=== PATIENT | male | born 1970 | race Hispanic/Latino ===

== ENCOUNTER 2018-11-20 20:09 | Inpatient (IN) | payer SELFPAY ==
[~2018-11-20 20:09] MED LIST: ISOVUE-370 76%-LOCM 1 ML ONE
[2018-11-20 20:35] LABS: #Eosinphils 0.1 thou/uL (0.0-0.7); #Lymphocytes 1.5 thou/uL (1.20-3.40); #Monocytes 0.5 thou/uL (0.11-0.59); #Neutrophils 7.4 thou/uL (1.40-6.50); %Basophils 0.5 % (0.0-1.0); %Eosinophils 0.9 % (0.0-10.0); %Lymphocytes 16.1 % (21.0-51.0); %Monocytes 4.8 % (0.0-10.0); %Neutrophils 77.8 % (42.0-75.0); Hemoglobin 17.1 g/dL (14.0-18.0); Mean Corpuscular HGB CONC 34.9 g/dL (32.0-36.0); Mean Corpuscular Hemoglobin 31.5 pg (27.0-31.0); Mean Corpuscular Volume 90.2 fL (78.0-98.0); Mean Platelet Volume 7.9 fL (7.4-10.4); Platelet Count 202 thou/uL (130-400); Red Blood Cell (RBC) Count 5.43 mill/uL (4.70-6.10); White Blood Cell (WBC) Count 9.5 thou/uL (4.8-10.8)
[2018-11-20 20:59] LABS: Bilirubin Negative (Negative); Blood, Urine Moderate (Negative); Clarity CLEAR (Clear); Glucose, Urine (Dipstick) Negative (Negative); Leukocyte Negative (Negative); Nitrite Negative (Negative); Protein, Urine (Dipstick) Negative (Neg-Trace); Specific Gravity, Urine 1.015 (1.002-1.036); pH, Urine 7.5 (5.0-9.0)
[2018-11-20 21:00] LABS: Bacteria/HPF None Seen HPF (None Seen); Hyaline Casts/LPF 0-3 HYALINE CAST LPF (0-3 Hyaline); Pathc Cast-AUWi Flag 0.14 (0-2.49); Squamous Epithelial 0-3 HPF (0-3); WBC/HPF None Seen HPF (0-3)
[2018-11-20 21:05] LABS: ALT (SGPT) 53 U/L (8-55); AST (SGOT) 35 U/L (5-34); Albumin 4.7 g/dL (3.5-5.0); Alkaline Phosphatase 87 U/L (40-150); Anion Gap 14 mmol/L (10-20); BUN (Urea Nitrogen) 8 mg/dL (8.9-20.6); Calc. Creatinine Clearance 0 mL/min (70-130); Calcium 9.6 mg/dL (7.8-10.44); Carbon Dioxide 23 mmol/L (22-29); Chloride 104 mmol/L (98-107); Estimated GFR-MDRD 86; Globulin 3.4 g/dL (2.4-3.5); Glucose 107 mg/dL (70-105); Potassium 4.1 mmol/L (3.5-5.1); Protein, Total 8.1 g/dL (6.0-8.3); Sodium 137 mmol/L (136-145)
--- NOTE | 2018-11-20 23:36 | CT ---
CT ABDOMEN WITH CONTRAST CT PELVIS WITH CONTRAST: DATE: 11/20/2018 TIME: 11:10 p.m. HISTORY: A 48-year-old male with periumbilical abdominal pain, nausea, and emesis. COMPARISON: None available. TECHNIQUE: IV injection of iodinated contrast media: Isovue. Oral contrast media: Not administered. FINDINGS: The appendix is fluid-filled and dilated to a caliber of 14 mm. At the tip of the appendix, there is a 10 mm appendicolith. Several centimeters proximal to that, there is a tiny, 0.2 cm appendicolith. Hepatic attenuation is diffusely low, suggestive of a fatty liver. There are a few accessory splen ules. Otherwise, the spleen, bilateral kidneys, abdominal aorta, adrenals, and pancreas are normal. No colonic diverticulitis. No small bowel dilatation. Normal urinary bladder. No ascites or pneum operitoneum. IMPRESSION: 1. Positive for acute appendicitis. 2. Hepatic steatosis. NENA Buckner POS: TYRON
[2018-11-21] MEDS ORDERED: Ketorolac Tromethamine 30 MG/ML VIAL ONE ×2 (00:08→07:45)
[2018-11-21] MEDS ORDERED: Piperacillin/Tazobactam 3.375 GM VIAL ONE (00:08)
[2018-11-21] MEDS ORDERED: Ondansetron PF 4 MG/2 ML Vial ONE ×3 (00:08→14:20)
[2018-11-21] MEDS ORDERED: Morphine 4 MG/ML VIAL ONE ×2 (00:08→00:17)
[2018-11-21] MEDS ORDERED: Piperacillin/Tazobactam 3.375 GM in Sodium Chloride 0.9% 100 ML IVPB SCH (08:00)
[2018-11-21] MEDS ORDERED: Bupivacaine HCl 0.5%/Epinephrine 1:200,000/PF 30 ml Vial ONE (08:39)
--- NOTE | 2018-11-21 08:42 | HP ---
SUBJECTIVE: Benjamín Joseph is a 48-year-old male lives in [place], works in kitchen. He is with four children. He speaks Portuguese only. [employer] service was used for this interview. The patient presented in the emergency room with abdominal pain. He had onset of abdominal pain, right lower quadrant, periumbilical yesterday. He has suffered nausea, but no vomiting and no fever. He underwent a CAT scan of the abdomen and pelvis confirming appendicitis. ALLERGIES: NONE. TOBACCO: None. ALCOHOL: Six beers a day. MEDICATIONS: None. PAST SURGICAL HISTORY: Noncontributory. PAST MEDICAL HISTORY: Noncontributory. PHYSICAL EXAMINATION: VITAL SIGNS: Blood pressure 120/74, respiratory rate 18, heart rate 74. HEAD, EARS, EYES, NOSE, AND THROAT: Unremarkable. LUNGS: Clear to auscultation. CARDIAC: Regular rate and rhythm without murmur or gallop. ABDOMEN: Soft. Tenderness in right lower quadrant. No guarding or rebound. Positive McBurney's point. EXTREMITIES: Unremarkable. HEENT: Sclerae not icteric. NEURO: No focal neurological deficit. ASSESSMENT/PLAN: Acute appendicitis. I recommend laparoscopic video appendectomy. Risks of infection, bleeding, visceral injury, possible open procedure discussed. Questions answered. PLAN: Laparoscopic appendectomy today. Job ID: [id number]
[2018-11-21] MEDS ORDERED: Fentanyl 100 MCG/2 ML VIAL ONE (08:49)
--- NOTE | 2018-11-21 11:49 | OP ---
DATE OF PROCEDURE: 11/21/2018 PREOPERATIVE DIAGNOSIS: Acute appendicitis. POSTOPERATIVE DIAGNOSIS: Acute appendicitis. PROCEDURE PERFORMED: Laparoscopic video appendectomy. ANESTHESIA: General, local 0.5% Marcaine with epinephrine 30 mL. DESCRIPTION OF PROCEDURE: The patient was taken to the operating room, where under general anesthesia, abdomen was clipped of hair, prepared with ChloraPrep and draped in routine fashion. Montalvo catheter was placed at the beginning of the procedure and removed at the end. Infraumbilical incision was made. Pneumoperitoneum to 15 mmHg obtained with a Veress needle, replaced with a 5 port, and laparoscope inserted. Right lateral subcostal incision made and 5 port placed. Suprapubic incision was made and a 12 port placed. Appendix was acutely inflamed. The mesoappendix was taken down with the LigaSure. The stump of the appendix divided with the Endo blue load ROBEL stapler. Stapled cecal stump was hemostatic and secured as the appendix placed in Endobag and removed. Suprapubic fascia was approximated with 0 Vicryl UR two needle. Irrigant and pneumoperitoneum evacuated after assuring good hemostasis. All instruments were removed and all skin incisions were approximated with interrupted subdermal 4-0 Monocryl and Epping glue applied. Job ID: [id number]
[2018-11-21] MEDS ORDERED: Glycopyrrolate 0.2 MG/ML 5 ML SYRINGE ONE (14:20)
[2018-11-21] MEDS ORDERED: PROPOFOL 200 MG/20 ML VIAL ONE (14:20)
[2018-11-21] MEDS ORDERED: Dexamethasone 20 MG/5 ML VIAL ONE (14:20)
[2018-11-21] MEDS ORDERED: Lidocaine 1% PF 5 ML VIAL ONE (14:20)
[2018-11-21] MEDS ORDERED: Rocuronium Bromide 10 MG/ML (10ML VIAL) ONE (14:20)
[2018-11-21] MEDS ORDERED: Succinylcholine Chloride 20 MG/ML 10 ml SYRINGE FS ONE (14:20)
== END 2018-11-21 11:55 | disposition home or self-care (01) | DRG 343 ==
LOC: ERS 20:09 → ERHOLD 11-21 00:57 → SURG A 11-21 08:00
PROVIDERS: ADMIT Specialist; ATTEND Specialist
PROC: 0DTJ4ZZ Resection of Appendix, Percutaneous Endoscopic Approach (ICD-10-PCS; principal; 2018-11-21)
DX: K35.80 Unspecified acute appendicitis (principal)
CPT/HCPCS: 36415; 74177; 80053; 81003; 81015; 83690; 85025; 88304; J0131; J0670; J1100; J1885; J2001; J2270; J2405; J2543; J2704; J3010; J7050